=== PATIENT | female | born 1960 | race Caucasian/White ===

== ENCOUNTER 2017-01-18 12:41 | Emergency (ER) | payer OTHER ==
[~2017-01-18] VITALS: Ht 177.8 cm; Wt 121.0 kg
[2017-01-18 13:28] LABS: EOSINOPHIL (%) 2.9 % (0-5); EOSINOPHIL COUNT 0.2 K/uL (0-0.3); HEMATOCRIT 40.3 % (36.0-46.0); IMMATURE GRANULOCYTE (%) 0.3 % (0.0-0.7); INSTRUMENT ABS NEUTROPHIL CT 3.6 K/uL; LYMPHOCYTE COUNT 1.6 K/uL (1.0-2.8); MCH 29.6 PG (29.0-34.0); MCHC 34.2 G/DL (30.0-36.0); MCV 86.5 FL (83-99); MEAN PLAT.VOLUME 9.1 uM^3 (9.5-12.4); MONOCYTE (%) 7.8 % (3-12); MONOCYTE COUNT 0.5 K/uL (0-0.8); NEUTROPHIL (%) 61.7 % (45-76); NEUTROPHIL COUNT 3.6 K/uL (1.8-6.4); PLATELET COUNT 201 K/uL (156-360); RBC DIS.WIDTH-CV 12.1 % (11.8-14.6); RBC DIS.WIDTH-SD 38.4 % (39-53); RED BLOOD COUNT 4.66 M/uL (3.80-5.20); WHITE BLOOD COUNT 5.8 K/uL (4.1-10.2)
[2017-01-18 13:43] LABS: CHLORIDE 108 mEq/L (99-109); POTASSIUM 4.3 mEq/L (3.7-5.4); SODIUM 141 mEq/L (136-147)
[2017-01-18 13:45] LABS: GLUCOSE 97 mg/dL (70-99)
[2017-01-18 13:46] LABS: ANION GAP 9 MEQ/L (2-14)
[2017-01-18 13:49] LABS: GFR ESTIMATE (CALCULATED) > 59 mL/min/
[2017-01-18 13:50] LABS: UREA NITROGEN (BUN) 17 mg/dL (9-23)
[2017-01-18 13:53] LABS: TROP-I INTERPRETATION NEGATIVE; TROPONIN-I < 0.01 ng/mL (0.0-0.30)
[2017-01-18 16:44] LABS: TROP-I INTERPRETATION NEGATIVE; TROPONIN-I < 0.01 ng/mL (0.0-0.30)
[2017-01-18 17:48] VITALS: BP 118/65
== END 2017-01-18 17:49 | disposition home or self-care (01) ==
LOC: EME 12:41
PROVIDERS: Emergency Medicine
DX: I10 Essential (primary) hypertension (principal); Z56.6 Other physical and mental strain related to work; F41.9 Anxiety disorder, unspecified
CPT/HCPCS: 71010; 80048; 84484; 85025; 93005; 99281; 99285

== ENCOUNTER 2017-11-07 21:41 | Inpatient (IN) | payer OTHER ==
[~2017-11-07] VITALS: Ht 177.8 cm; Wt 120.2 kg
[~2017-11-07 21:41] MED LIST: ALEVE220 M2 PO; CATAPRES0.1 MG PO; CELEXA40 MG PO; COZAAR100 MG PO; TOPROL XL50 MG PO; TYLENOL ARTHRI650 MG PO; WELLBUTRIN SR150 MG PO
[2017-11-08 15:45] VITALS: BP 170/88
[2017-11-08 18:20] VITALS: BP 173/88
[2017-11-08 19:49] VITALS: BP 168/80
[2017-11-08 23:41] VITALS: BP 174/83
[2017-11-09 04:22] VITALS: BP 167/80
[2017-11-09 06:32] LABS: HEMATOCRIT 39.6 % (36.0-46.0); HEMOGLOBIN 13.4 G/DL (11.9-15.5); MCH 29.3 PG (29.0-34.0); MCHC 33.8 G/DL (30.0-36.0); MCV 86.5 FL (83-99); PLATELET COUNT 253 K/uL (156-360); RBC DIS.WIDTH-CV 12.4 % (11.8-14.6); RBC DIS.WIDTH-SD 39.1 % (39-53); RED BLOOD COUNT 4.58 M/uL (3.80-5.20)
[2017-11-09 06:56] LABS: CHLORIDE 98 MEQ/L (99-109); CREATININE 0.8 MG/DL (0.6-1.3); GFR ESTIMATE (CALCULATED) > 59 mL/min/; GLUCOSE 129 mg/dL (70-99); POTASSIUM 4.3 MEQ/L (3.7-5.4); SODIUM 135 MEQ/L (136-147); UREA NITROGEN (BUN) 9 mg/dL (9-23)
[2017-11-09 08:23] VITALS: BP 146/75
[2017-11-09 11:52] VITALS: BP 158/82
[2017-11-09 16:56] VITALS: BP 160/94
[2017-11-09 21:00] VITALS: BP 155/77
[2017-11-10] VITALS: BP 154/78
[2017-11-10 04:00] VITALS: BP 135/77
[2017-11-10 05:43] LABS: HEMATOCRIT 40.6 % (36.0-46.0); HEMOGLOBIN 13.7 G/DL (11.9-15.5); MCHC 33.7 G/DL (30.0-36.0); PLATELET COUNT 257 K/uL (156-360); RBC DIS.WIDTH-CV 12.4 % (11.8-14.6); RBC DIS.WIDTH-SD 39.2 % (39-53); RED BLOOD COUNT 4.72 M/uL (3.80-5.20); WHITE BLOOD COUNT 10.6 K/uL (4.1-10.2)
[2017-11-10 06:02] LABS: CHLORIDE 101 MEQ/L (99-109); CREATININE 0.9 MG/DL (0.6-1.3); GFR ESTIMATE (CALCULATED) > 59 mL/min/; GLUCOSE 117 mg/dL (70-99); POTASSIUM 4.1 MEQ/L (3.7-5.4); SODIUM 138 MEQ/L (136-147); UREA NITROGEN (BUN) 11 mg/dL (9-23)
[2017-11-10 07:48] VITALS: BP 178/87
[2017-11-10 11:22] VITALS: BP 176/85
[2017-11-10] MEDS ORDERED: DILAUDID4 MG PO (12:33)
[2017-11-10] MEDS ORDERED: ZOFRAN8 MG PO (12:33)
[2017-11-10] MEDS ORDERED: COLACE100 MG PO (12:33)
[2017-11-10] MEDS ORDERED: URSODIOL300 MG PO (12:33)
[2017-11-10] MEDS ORDERED: OMEPRAZOLE20 MG PO (12:33)
== END 2017-11-10 13:40 | disposition home or self-care (01) | DRG 621 ==
LOC: 2SOUTH → ENRESERV 21:41 → 2SOUTH 11-08 06:47 → ENRESERV 11-08 13:36 → 2EAST 11-08 16:08
PROVIDERS: Surgery
PROC: 0DB64Z3 Excision of Stomach, Percutaneous Endoscopic Approach, Vertical (ICD-10-PCS; principal; 2017-11-08)
DX: E66.01 Morbid (severe) obesity due to excess calories (principal); Z68.38 Body mass index [BMI] 38.0-38.9, adult; I10 Essential (primary) hypertension; F32.9 Major depressive disorder, single episode, unspecified; M17.12 Unilateral primary osteoarthritis, left knee
CPT/HCPCS: 80048; 82948; 85027; 86850; 86900; 86901; 88300; 94799; C9113; J0131; J0330; J1100; J1170; J1644; J2250; J2405; J2710; J3010; J3480; J7120; J7643; Q0175; S0074